=== PATIENT | female | born 1945 | race Caucasian/White ===

== ENCOUNTER 2024-12-27 18:02 | Inpatient (IN) | payer OTHER ==
[~2024-12-27 18:02] MED LIST: AMLODIPINE BES2.5 MG PO; ASPIRIN81 M1 PO; AUGMENTIN 875 M1 TA1 PO; BREZTRI AEROS10.7 GM INH; CALCIUM500 M1 PO; CIPROFLOXACIN750 MG PO; COQ1050 MG PO; DOXYCYCLINE HY100 M3 PO; DUONEB 3 MG/3 ML3 M1 INH; FLUCONAZOL40 MG/1 ML PO; HYDROCHLOROTH12.5 M2 PO; LEVOFLOXACIN750 M2 PO; LISINOPRIL40 MG PO; MAXZIDE 25 MG-31 TAB PO; PANTOPRAZOLE SO40 MG PO; PAXLOVID 300-11 EAC2 PO; PEPCID20 MG PO; PIPERACIL-TAZO4.5 G1 IV; PREDNISONE10 MG PO; ROBITUSSIN5 ML PO; SPIRIVA18 MCG IH; VENTOLIN0.09 MG/AC IH; VITAMIN C500 M4 PO; VITAMIN D350 MCG PO; ZINC50 M4 PO; ZITHROMAX250 MG PO
[2024-12-27] MEDS ORDERED: GLYCOPYRROLATE 1 MG TAB PO PRN (18:40)
[2024-12-27] MEDS ORDERED: BISACODYL 10 MG SUPP R PRN (18:45)
[2024-12-27] MEDS ORDERED: ACETAMINOPHEN 650 MG SUPP R PRN (18:45)
[2024-12-27] MEDS ORDERED: diazePAM 10 MG/2 ML SYR IV PRN (18:50)
[2024-12-27] MEDS ORDERED: MORPHINE Sulfate 100 MG in SODIUM CHLORIDE 0.9% 90 ML IV SCH (19:15)
== END 2024-12-27 21:16 | DRG 871 ==
LOC: ICCU 18:02
PROVIDERS: ADMIT Student in an Organized Health Care Education/Training Program; ATTEND Student in an Organized Health Care Education/Training Program
DX: A41.9 Sepsis, unspecified organism (principal); J18.9 Pneumonia, unspecified organism; J44.0 Chronic obstructive pulmonary disease with (acute) lower respiratory infection; B37.89 Other sites of candidiasis; N39.0 Urinary tract infection, site not specified; N17.9 Acute kidney failure, unspecified; Z66 Do not resuscitate; Z20.822 Contact with and (suspected) exposure to COVID-19; I10 Essential (primary) hypertension; B96.89 Other specified bacterial agents as the cause of diseases classified elsewhere; D69.6 Thrombocytopenia, unspecified